=== PATIENT | female | born 1960 | race Caucasian/White ===

== ENCOUNTER → 2016-07-09 | Outpatient (CLI) | payer OTHER ==
--- NOTE | 2016-07-10 13:41 | KCIC ---
EXAM Bilateral digital screening mammogram. HISTORY 56-year-old female presents for screening mammography. TECHNIQUE Full field digital craniocaudal and mediolateral oblique views of both breasts were obtained. Computer-aided detection is applied. COMPARISON 07/21/2012 FINDINGS Breast parenchymal composition: Level B - Scattered fibroglandular densities. There is no new suspicious mass, calcification or architectural distortion within either breast. There is a stable benign-appearing nodular density within the medial aspect of the left breast at mid depth. IMPRESSION BI-RADS Category 2: Benign findings. Annual mammography is recommended. This study was interpreted with the benefit of Computerized Aided Detection (CAD). Mammography is not 100% sensitive in detecting breast cancer. Therefore, a self breast exam and a clinical breast exam are very important. A negative mammogram does not negate a clinically suspicious finding and should not result in a delay in biopsying a clinically suspicious abnormality. The patient information was entered into a reminder system with a target date for her next mammogram in year. Electronically signed by: Anu Alvarez (July 10, 2016 13:39:29)
== END | disposition home or self-care (01) ==
LOC: KCIC MAMMO 15:44
PROVIDERS: ATTEND Nurse Practitioner Family
DX: Z12.31 Encounter for screening mammogram for malignant neoplasm of breast (principal)
CPT/HCPCS: G0202; 77067

== ENCOUNTER → 2017-08-26 | Outpatient (CLI) | payer OTHER | END | disposition home or self-care (01) | LOC: MAMMO 15:04 | DX: Z12.31 Encounter for screening mammogram for malignant neoplasm of breast (principal) | CPT/HCPCS: 77067 ==